=== PATIENT | female | born 1965 | race Caucasian/White ===

== ENCOUNTER 2017-09-17 19:22 | Emergency (ER) | payer BC | END 2017-09-17 20:30 | disposition home or self-care (01) | LOC: D.ER 19:22 | DX: J06.9 Acute upper respiratory infection, unspecified (principal); J20.9 Acute bronchitis, unspecified ==

== ENCOUNTER → 2017-09-29 10:58 | Outpatient (CLI) | payer BC ==
[2017-09-29 13:33] LABS: BASOPHILS 0.2 % (0-2); EOSINOPHILS 1.2 % (0-7); HEMATOCRIT 47.8 % (36.0-48.0); HEMOGLOBIN 16.1 g/dL (12-16); IMMATURE GRANULOCYTES 3.7 % (0-5); LYMPHOCYTES 19.4 % (15-50); MCH 29.8 pg (26.0-34.0); MCHC 33.7 g/dL (31.0-37.0); MCV 88.4 fL (80.0-100.0); MEAN PLATELET VOLUME 9.2 fL (7.4-10.4); NEUTROPHILS 66.5 % (40-80); PLATELET COUNT 282 10x3/uL (130-400); RBC 5.41 10x6/uL (4.00-5.40); RDW 12.8 % (11.5-14.5); WBC 9.8 10x3/uL (4.8-10.8)
[2017-09-30 08:18] LABS: IMMUNOGLOBULIN E 7 IU/mL (0-100)
== END | disposition home or self-care (01) ==
LOC: D.RT 10:58
PROVIDERS: Internal Medicine Pulmonary Disease
DX: J45.909 Unspecified asthma, uncomplicated (principal)